=== PATIENT | female | born 1970 | race Caucasian/White ===

== ENCOUNTER 2020-10-18 21:55 | Inpatient (IN) | payer MEDICARE, MEDICAID ==
[~2020-10-18] VITALS: Ht 165.1 cm; Wt 72.7 kg
[2020-10-18] MEDS ORDERED: pantoprazole 40 MG vial IV ONE (22:05)
[2020-10-18] MEDS ORDERED: famotidine/PF 10 mg/ml inj IV ONE (22:05)
[2020-10-18] MEDS ORDERED: normal saline 1000ML IV soln IV ONE (22:05)
[2020-10-18] MEDS ORDERED: ondansetron/PF 4mg/2ml inj IV ONE (22:25)
[2020-10-18] MEDS ORDERED: morphine 4 MG/ML inj SYRINge IV ONE ×2 (22:25→23:40)
[2020-10-18 22:26] LABS: BASOPHILS # (AUTO) 0.1 X10'3 (0-0.2); BASOPHILS % (AUTO) 0.8 % (0-1); EOSINOPHILS % (AUTO) 0.3 % (0-6); HEMATOCRIT 41.8 % (35.0-45.0); HEMOGLOBIN 14.2 g/dl (12.0-16.0); LYMPHOCYTES # (AUTO) 2.5 X10'3 (1.1-4.8); LYMPHOCYTES % (AUTO) 17.3 % (21-51); MEAN CORPUSCULAR HEMOGLOBIN 28.5 PG (27.0-31.0); MEAN CORPUSCULAR HGB CONC 33.8 g/dL (33.0-36.5); MEAN CORPUSCULAR VOLUME 84.4 FL (78-98); MEAN PLATELET VOLUME 8.8 FL (7.4-10.4); MONOCYTES # (AUTO) 1.2 X10'3 (0-0.9); MONOCYTES % (AUTO) 8.7 % (2-12); NEUTROPHILS # (AUTO) 10.4 X10'3 (1.8-7.7); NEUTROPHILS % (AUTO) 72.9 % (42-75); PLATELET COUNT 377 X10'3 (140-440); RED BLOOD COUNT 4.96 X10'6 (4.20-5.60); RED CELL DISTRIBUTION WIDTH 15.2 % (11.5-14.5); WHITE BLOOD COUNT 14.2 X10'3 (4.5-11.0)
[2020-10-18 22:40] LABS: PARTIAL THROMBOPLASTIN TIME 24 SECONDS (22-32)
[2020-10-18 22:42] LABS: ALANINE AMINOTRANSFERASE 32 U/L (12-78); ALBUMIN 3.8 G/DL (3.4-5.0); ALBUMIN/GLOBULIN RATIO 0.9 (1.1-1.5); ALKALINE PHOSPHATASE 113 IU/L (46-116); ANION GAP 19 (8-16); ASPARTATE AMINO TRANSFERASE 24 U/L (10-37); BILIRUBIN,TOTAL 0.5 MG/DL (0.1-1.0); BLOOD UREA NITROGEN 13 MG/DL (7-18); BUN/CREATININE RATIO 11.8 (6.6-38.0); CALCIUM 11.5 MG/DL (8.5-10.1); CHLORIDE 98 MMOL/L (99-107); ETHANOL < 0.010 GM/DL (0.0-0.010); GLUCOSE 108 MG/DL (70-104); LIPASE < 50 U/L (73-393); MAGNESIUM 1.3 MG/DL (1.5-2.4); SODIUM 141 MMOL/L (135-145); TOTAL CARBON DIOXIDE 23.8 MMOL/L (24-32); TOTAL PROTEIN 8.2 G/DL (6.4-8.2); eGFR 53 ML/MIN
[2020-10-18] MEDS: pantoprazole 40MG/NS 100ML BAG 100 ML IV SCH (23:16)
[2020-10-18 23:58] LABS: CLARITY,URINE CLEAR (Clear); COLOR,URINE YELLOW (Yellow); UA COLLECTION TYPE CLN CATCH MIDSTREAM
[2020-10-18 23:59] LABS: GLUCOSE, URINE 250 mg/dl (Neg); KETONES,URINE NEGATIVE (Neg); LEUKOCYTE ESTERASE ,URINE NEGATIVE (Neg); NITRITES, URINE NEGATIVE (Neg); OCCULT BLOOD,URINE TRACE-INTACT (Neg); PROTEIN,URINE 30 mg/dl (Neg); UROBILINOGEN,URINE 0.2 E.U/dL (0.2-1.0)
[2020-10-19] LABS: URINE AMPHETAMINE SCREEN NEGATIVE (Neg); URINE BARBITUATE SCREEN NEGATIVE (Neg); URINE BENZODIAZEPINES SCREEN NEGATIVE (Neg); URINE CANNABINOID SCREEN NEGATIVE (Neg); URINE COCAINE SCREEN NEGATIVE (Neg); URINE METHADONE SCREEN NEGATIVE (Neg); URINE OPIATE SCREEN POSITIVE (Neg); URINE PHENCYCLIDINE SCREEN NEGATIVE (Neg)
[2020-10-19 00:02] LABS: RBC,URINE 0-2 /HPF (0-2); WBC,URINE NONE SEEN /HPF (0-4)
[2020-10-19 00:03] LABS: BACTERIA,URINE NONE SEEN /HPF (Neg); SQUAMOUS EPITHELIAL CELL,UR NONE SEEN /LPF (FEW)
[2020-10-19] MEDS ORDERED: haloperidol lactate 5mg/ml inj IM ONE (00:40)
[2020-10-19] MEDS ORDERED: potassium Cl 40 mEq/0.45% sodium chloride IV soln 520ml IV ONE (00:45)
[2020-10-19] MEDS ORDERED: Potassium Cl 40 MEQ in sodium chloride 0.45% 500 ML IV ONE (01:10)
[2020-10-19] MEDS ORDERED: diltiazem 5mg/ml 5ml inj. IV ONE (01:10)
[2020-10-19] MEDS: magnesium 2GM in 50ml NS 50 ML IV SCH ×2 (01:40→02:37)
[2020-10-19] MEDS ORDERED: dextrose ORAL solution 15 GM/59 ML bottle PO PRN ×2 (02:00)
[2020-10-19] MEDS ORDERED: normal saline 1000ml 1,000 ML IV SCH (02:00)
[2020-10-19] MEDS ORDERED: magnesium Cl slow-release 64mg tablet PO PRN (02:00)
[2020-10-19] MEDS ORDERED: magnesium 4gm in 100ml NS 100 ML IV PRN (02:00)
[2020-10-19] MEDS ORDERED: acetaminophen 325mg tablet PO PRN ×2 (02:00)
[2020-10-19] MEDS ORDERED: morphine 2 MG/ML inj. syringe IV PRN (02:00)
[2020-10-19] MEDS ORDERED: HYDROcodone/acetaminophen 5mg/325mg tablet PO PRN (02:00)
[2020-10-19] MEDS ORDERED: potassium Cl 40MEQ/1/2NS 520ml 520 ML IV PRN ×2 (02:00)
[2020-10-19] MEDS ORDERED: HYDROmorphone inj. 0.5 MG/0.5 ML DISP.SYRIN IV PRN (02:00)
[2020-10-19] MEDS ORDERED: MESSAGE TO PHARMACY PO ONE (02:00)
[2020-10-19] MEDS ORDERED: dextrose 50%-water 50ml dispensing syringe IV PRN ×2 (02:00)
[2020-10-19] MEDS ORDERED: potassium Cl 20 mEq SR tablet PO PRN ×2 (02:00)
[2020-10-19] MEDS ORDERED: magnesium hydroxide 30ml (MOM) UD suspension PO PRN (02:00)
[2020-10-19] MEDS ORDERED: magnesium 2GM in 50ml NS 50 ML IV PRN (02:00)
[2020-10-19] MEDS ORDERED: glucagon, human recombinant 1mg kit SUBCUT PRN (02:00)
[2020-10-19] MEDS: potassium Cl 20mEq in NS 1,000 ML IV SCH ×4 (02:15→21:03)
[2020-10-19 02:52] LABS: HEMOGLOBIN A1C 11.6 % (4.5-6.2)
[2020-10-19 04:17] LABS: GASTRIC OCCULT BLOOD NEGATIVE (Neg); OCCULT BLOOD STOOL POSITIVE (Neg)
[2020-10-19] MEDS: pantoprazole 40MG/NS 100ML BAG 100 ML IV SCH ×5 (04:27→19:25)
--- NOTE | 2020-10-19 05:55 | NUR ---
NOTIFIED MAGU OF UPWARD TREND OF TROPONIN LEVELS. MD ORDERED TO CONT MONITORING.
[2020-10-19] MEDS: docusate sod 100mg capsule PO SCH ×2 (08:00→18:45)
[2020-10-19] MEDS: K and/or MAG REPLACEMENT MC SCH ×2 (08:00→18:45)
[2020-10-19] MEDS ORDERED: pantoprazole 40 MG vial IV SCH (08:00)
[2020-10-19] MEDS: CefTRIAXone 2gm/D5W 50ml BAG 50 ML IV SCH (09:01)
[2020-10-19 10:01] LABS: ALBUMIN 3.2 G/DL (3.4-5.0); ANION GAP 23 (8-16); BLOOD UREA NITROGEN 17 MG/DL (7-18); BUN/CREATININE RATIO 13.9 (6.6-38.0); CALCIUM 8.4 MG/DL (8.5-10.1); CHLORIDE 95 MMOL/L (99-107); CREATININE 1.22 MG/DL (0.40-0.90); SODIUM 129 MMOL/L (135-145); eGFR 47 ML/MIN
[2020-10-19] MEDS: azithromycin/NS 500mg/250ml 250 ML IV SCH (11:07)
[2020-10-19 11:43] LABS: POTASSIUM 6.5 MMOL/L (3.5-5.1)
[2020-10-19 11:44] LABS: GLUCOSE 593 MG/DL (70-104)
[2020-10-19] MEDS ORDERED: sodium phosphate inj. 15 MMOL in dextrose 5%-water 250 ML IV PRN (12:10)
[2020-10-19] MEDS ORDERED: Neutra Phos packet PO PRN (12:10)
[2020-10-19] MEDS ORDERED: sodium phosphate inj. 30 MMOL in dextrose 5%-water 250 ML IV PRN (12:10)
[2020-10-19] MEDS ORDERED: insulin regular, human U-100 3ml vial - multi-dose IV PRN (12:10)
[2020-10-19] MEDS ORDERED: LEVO100T PO (12:22)
[2020-10-19] MEDS ORDERED: LISI20TA28 PO (12:22)
[2020-10-19] MEDS ORDERED: INSU100V13 SQ (12:22)
[2020-10-19] MEDS ORDERED: CARV6.2553 PO (12:22)
[2020-10-19] MEDS ORDERED: VITA400T10 PO (12:22)
[2020-10-19] MEDS ORDERED: AMIT25TA9 PO (12:22)
[2020-10-19] MEDS ORDERED: LORA-269 PO (12:22)
[2020-10-19] MEDS ORDERED: PRAZ2CAP2 PO (12:22)
[2020-10-19] MEDS ORDERED: LANTUS SQ (12:22)
[2020-10-19] MEDS ORDERED: ATOR40TA72 PO (12:22)
[2020-10-19] MEDS ORDERED: ASPI-611 PO (12:22)
[2020-10-19] MEDS ORDERED: SUMA50TA17 PO (12:22)
[2020-10-19 13:25] LABS: ALBUMIN 3.4 G/DL (3.4-5.0); ANION GAP 31 (8-16); BLOOD UREA NITROGEN 19 MG/DL (7-18); BUN/CREATININE RATIO 11.9 (6.6-38.0); CALCIUM 7.9 MG/DL (8.5-10.1); CHLORIDE 91 MMOL/L (99-107); CREATININE 1.59 MG/DL (0.40-0.90); PHOSPHORUS 5.1 MG/DL (2.3-4.5); POTASSIUM 5.9 MMOL/L (3.5-5.1); SODIUM 129 MMOL/L (135-145); eGFR 35 ML/MIN
[2020-10-19 13:31] LABS: HEMATOCRIT 34.7 % (35.0-45.0); HEMOGLOBIN 11.6 g/dl (12.0-16.0); MEAN CORPUSCULAR HEMOGLOBIN 29.4 PG (27.0-31.0); MEAN CORPUSCULAR HGB CONC 33.6 g/dL (33.0-36.5); MEAN CORPUSCULAR VOLUME 87.5 FL (78-98); PLATELET COUNT 325 X10'3 (140-440); RED BLOOD COUNT 3.96 X10'6 (4.20-5.60); RED CELL DISTRIBUTION WIDTH 14.5 % (11.5-14.5); WHITE BLOOD COUNT 17.1 X10'3 (4.5-11.0)
[2020-10-19 13:32] LABS: MEAN PLATELET VOLUME 9.6 FL (7.4-10.4)
[2020-10-19 13:36] LABS: GLUCOSE 719 MG/DL (70-104); TOTAL CARBON DIOXIDE 7.4 MMOL/L (24-32)
[2020-10-19] MEDS: Insulin Reg/NS 100units/100mL 100 ML IV SCH (13:45)
[2020-10-19] MEDS: normal saline 1000ml 1,000 ML IV SCH ×4 (13:51→21:03)
[2020-10-19] MEDS: ondansetron/PF 4mg/2ml inj IV PRN (13:55)
[2020-10-19] MEDS: morphine 2 MG/ML inj. syringe IV PRN (13:56)
[2020-10-19] MEDS: lactobacillus rhamnosus 10,000 MMU CELLS/CAPSULE PO SCH (18:46)
[2020-10-19] MEDS: dextrose 5%-1/2 normal saline 1,000 ML IV SCH (19:25)
[2020-10-19 19:30] LABS: ALANINE AMINOTRANSFERASE 34 U/L (12-78); ALBUMIN/GLOBULIN RATIO 0.7 (1.1-1.5); ALKALINE PHOSPHATASE 111 IU/L (46-116); ANION GAP 21 (8-16); ASPARTATE AMINO TRANSFERASE 26 U/L (10-37); BILIRUBIN,TOTAL 0.5 MG/DL (0.1-1.0); BLOOD UREA NITROGEN 18 MG/DL (7-18); CALCIUM 7.9 MG/DL (8.5-10.1); CHLORIDE 101 MMOL/L (99-107); GLUCOSE 193 MG/DL (70-104); POTASSIUM 4.3 MMOL/L (3.5-5.1); SODIUM 137 MMOL/L (135-145); TOTAL CARBON DIOXIDE 15.2 MMOL/L (24-32); TOTAL PROTEIN 7.1 G/DL (6.4-8.2); eGFR 37 ML/MIN
[2020-10-19] MEDS: insulin glargine (Lantus) pen - multi-dose SQ SCH (21:00)
[2020-10-19] MEDS: potassium CL 20mEq in D5-1/2NS 1,000 ML IV PRN (21:04)
--- NOTE | 2020-10-19 22:07 | NUR ---
BG [id number]
[2020-10-20] MEDS: pantoprazole 40MG/NS 100ML BAG 100 ML IV SCH ×4 (00:56→21:41)
[2020-10-20] MEDS: dextrose 5%-1/2 normal saline 1,000 ML IV SCH ×4 (00:57→22:00)
[2020-10-20] MEDS: normal saline 1000ml 1,000 ML IV SCH ×5 (00:59→19:59)
[2020-10-20] MEDS: potassium Cl 20mEq in NS 1,000 ML IV SCH ×3 (01:00→18:15)
[2020-10-20 05:41] LABS: ALANINE AMINOTRANSFERASE 21 U/L (12-78); ALBUMIN 2.7 G/DL (3.4-5.0); ALBUMIN/GLOBULIN RATIO 0.7 (1.1-1.5); ALKALINE PHOSPHATASE 108 IU/L (46-116); ANION GAP 9 (8-16); ASPARTATE AMINO TRANSFERASE 22 U/L (10-37); BILIRUBIN,TOTAL 0.5 MG/DL (0.1-1.0); BLOOD UREA NITROGEN 12 MG/DL (7-18); BUN/CREATININE RATIO 9.2 (6.6-38.0); CALCIUM 7.4 MG/DL (8.5-10.1); CHLORIDE 105 MMOL/L (99-107); CREATININE 1.31 MG/DL (0.40-0.90); GLUCOSE 147 MG/DL (70-104); MAGNESIUM 1.8 MG/DL (1.5-2.4); PHOSPHORUS 1.9 MG/DL (2.3-4.5); SODIUM 134 MMOL/L (135-145); TOTAL PROTEIN 6.4 G/DL (6.4-8.2); eGFR 44 ML/MIN
[2020-10-20] MEDS: morphine 2 MG/ML inj. syringe IV PRN ×4 (05:42→23:40)
[2020-10-20] MEDS: ondansetron/PF 4mg/2ml inj IV PRN ×3 (05:42→23:40)
[2020-10-20 05:53] LABS: BASOPHILS # (AUTO) 0.1 X10'3 (0-0.2); BASOPHILS % (AUTO) 0.5 % (0-1); EOSINOPHILS # (AUTO) 0.1 X10'3 (0-0.9); EOSINOPHILS % (AUTO) 0.8 % (0-6); HEMATOCRIT 39.6 % (35.0-45.0); HEMOGLOBIN 13.2 g/dl (12.0-16.0); LYMPHOCYTES # (AUTO) 3.3 X10'3 (1.1-4.8); LYMPHOCYTES % (AUTO) 18.4 % (21-51); MEAN CORPUSCULAR HEMOGLOBIN 28.7 PG (27.0-31.0); MEAN CORPUSCULAR HGB CONC 33.4 g/dL (33.0-36.5); MEAN CORPUSCULAR VOLUME 85.9 FL (78-98); MEAN PLATELET VOLUME 8.9 FL (7.4-10.4); MONOCYTES # (AUTO) 1.3 X10'3 (0-0.9); MONOCYTES % (AUTO) 7.4 % (2-12); NEUTROPHILS % (AUTO) 72.9 % (42-75); PLATELET COUNT 252 X10'3 (140-440); RED BLOOD COUNT 4.61 X10'6 (4.20-5.60); RED CELL DISTRIBUTION WIDTH 15.2 % (11.5-14.5); WHITE BLOOD COUNT 17.8 X10'3 (4.5-11.0)
[2020-10-20] MEDS: K and/or MAG REPLACEMENT MC SCH ×2 (08:00→20:00)
[2020-10-20] MEDS: docusate sod 100mg capsule PO SCH ×2 (08:00→20:33)
[2020-10-20 08:43] LABS: TROPONIN I 0.15 NG/ML (0.0-0.05)
[2020-10-20] MEDS: azithromycin/NS 500mg/250ml 250 ML IV SCH (08:50)
[2020-10-20] MEDS: CefTRIAXone 2gm/D5W 50ml BAG 50 ML IV SCH (08:50)
[2020-10-20] MEDS: lactobacillus rhamnosus 10,000 MMU CELLS/CAPSULE PO SCH ×2 (08:50→20:32)
--- NOTE | 2020-10-20 09:40 | NUR ---
REPORTED BG [address] TRAYLOR. NEW ORDERS: DECREASE INSULIN DRIP TO 3U/HR, DECREASE D5 1/2 TO 200CC/HR. BMP IN ONE HR.
--- NOTE | 2020-10-20 09:53 | NUR ---
CALLED DR. TRAYLOR TO REPORT: PT HAVING SHARP LEFT FLANK PAIN.
[2020-10-20 11:15] LABS: ALBUMIN 2.3 G/DL (3.4-5.0); ANION GAP 11 (8-16); BLOOD UREA NITROGEN 7 MG/DL (7-18); BUN/CREATININE RATIO 7.5 (6.6-38.0); CALCIUM 6.7 MG/DL (8.5-10.1); CHLORIDE 108 MMOL/L (99-107); CREATININE 0.93 MG/DL (0.40-0.90); GLUCOSE 71 MG/DL (70-104); SODIUM 139 MMOL/L (135-145); eGFR 65 ML/MIN
[2020-10-20 11:21] LABS: POTASSIUM 3.6 MMOL/L (3.5-5.1)
[2020-10-20] MEDS: Insulin Reg/NS 100units/100mL 100 ML IV SCH (11:36)
[2020-10-20] MEDS: potassium CL 20mEq in D5-1/2NS 1,000 ML IV PRN ×2 (11:46→19:28)
[2020-10-20] MEDS ORDERED: fentaNYL/PF 50MCG/1 ML 2ML syringe ONE (12:38)
[2020-10-20] MEDS ORDERED: LIDOcaine Viscous 15ml cup ONE (12:39)
[2020-10-20] MEDS ORDERED: MIDAZolam 1 MG/ML 5ML VIAL ONE (12:39)
--- NOTE | 2020-10-20 12:56 | NUR ---
UYEN FROM GI HERE, PT TO GI LAB
[2020-10-20 13:00] VITALS: BP 133/118
[2020-10-20 13:33] VITALS: BP 92/65
[2020-10-20 13:43] VITALS: BP 95/55
[2020-10-20 13:53] VITALS: BP 91/53
[2020-10-20 14:03] VITALS: BP 97/53
--- NOTE | 2020-10-20 14:34 | NUR ---
Pt. back from GI lab, per GI senior laboratory technician pt. BG 110 in GI Lab
--- NOTE | 2020-10-20 16:30 | NUR ---
Disscussed pt.'s BG with Dr. Gaytan, Dr. Gaytan gave verbal order to decrease Insulin drip to 2units/hr
[2020-10-20] MEDS: HYDROcodone/acetaminophen 10/325mg tab PO PRN (17:52)
--- NOTE | 2020-10-20 18:02 | NUR ---
Disscussed pt.'s BG with Dr. Gaytan, Dr. Gaytan verbal oreder to Insulin drip to 1 unit/hr, and Fluids to 150ml/hr
[2020-10-20] MEDS: insulin glargine (Lantus) pen - multi-dose SQ SCH (21:00)
--- NOTE | 2020-10-20 21:43 | NUR ---
Disscussed pt. BG with Dr. Banuelos, D5 1/2 NS drip decreased
[2020-10-20 22:29] LABS: ALANINE AMINOTRANSFERASE 28 U/L (12-78); ALBUMIN 2.6 G/DL (3.4-5.0); ALBUMIN/GLOBULIN RATIO 0.7 (1.1-1.5); ALKALINE PHOSPHATASE 93 IU/L (46-116); ANION GAP 12 (8-16); ASPARTATE AMINO TRANSFERASE 27 U/L (10-37); BILIRUBIN,TOTAL 0.2 MG/DL (0.1-1.0); BLOOD UREA NITROGEN 4 MG/DL (7-18); BUN/CREATININE RATIO 3.1 (6.6-38.0); CALCIUM 7.2 MG/DL (8.5-10.1); CHLORIDE 105 MMOL/L (99-107); CREATININE 1.27 MG/DL (0.40-0.90); GLUCOSE 299 MG/DL (70-104); SODIUM 136 MMOL/L (135-145); TOTAL PROTEIN 6.3 G/DL (6.4-8.2); eGFR 45 ML/MIN
[2020-10-20] MEDS ORDERED: morphine 2 MG/ML inj. syringe IV PRN (23:25)
[2020-10-20] MEDS: temazepam 15mg capsule PO PRN (23:40)
[2020-10-21] VITALS (13 sets, daily range): BP systolic 121–166; BP diastolic 52–84
[2020-10-21] MEDS: normal saline 1000ml 1,000 ML IV SCH ×4 (00:10→23:00)
[2020-10-21] MEDS: potassium Cl 20mEq in NS 1,000 ML IV SCH (00:55)
[2020-10-21] MEDS: pantoprazole 40MG/NS 100ML BAG 100 ML IV SCH ×5 (01:00→23:21)
[2020-10-21 03:04] LABS: BASOPHILS % (AUTO) 0.5 % (0-1); EOSINOPHILS # (AUTO) 0.1 X10'3 (0-0.9); EOSINOPHILS % (AUTO) 1.2 % (0-6); HEMATOCRIT 35.8 % (35.0-45.0); LYMPHOCYTES # (AUTO) 2.7 X10'3 (1.1-4.8); LYMPHOCYTES % (AUTO) 33.8 % (21-51); MEAN CORPUSCULAR HEMOGLOBIN 29.1 PG (27.0-31.0); MEAN CORPUSCULAR HGB CONC 33.4 g/dL (33.0-36.5); MEAN CORPUSCULAR VOLUME 87.2 FL (78-98); MEAN PLATELET VOLUME 8.5 FL (7.4-10.4); MONOCYTES # (AUTO) 0.7 X10'3 (0-0.9); MONOCYTES % (AUTO) 8.3 % (2-12); NEUTROPHILS # (AUTO) 4.4 X10'3 (1.8-7.7); NEUTROPHILS % (AUTO) 56.2 % (42-75); PLATELET COUNT 237 X10'3 (140-440); RED BLOOD COUNT 4.11 X10'6 (4.20-5.60); WHITE BLOOD COUNT 7.9 X10'3 (4.5-11.0)
[2020-10-21 03:17] LABS: ALANINE AMINOTRANSFERASE 23 U/L (12-78); ALBUMIN 2.4 G/DL (3.4-5.0); ALBUMIN/GLOBULIN RATIO 0.7 (1.1-1.5); ALKALINE PHOSPHATASE 85 IU/L (46-116); ANION GAP 11 (8-16); ASPARTATE AMINO TRANSFERASE 26 U/L (10-37); BILIRUBIN,TOTAL 0.2 MG/DL (0.1-1.0); BLOOD UREA NITROGEN 3 MG/DL (7-18); BUN/CREATININE RATIO 3.2 (6.6-38.0); CALCIUM 7.3 MG/DL (8.5-10.1); CHLORIDE 108 MMOL/L (99-107); CREATININE 0.95 MG/DL (0.40-0.90); GLUCOSE 187 MG/DL (70-104); MAGNESIUM 1.8 MG/DL (1.5-2.4); POTASSIUM 4.3 MMOL/L (3.5-5.1); SODIUM 138 MMOL/L (135-145); TOTAL PROTEIN 5.9 G/DL (6.4-8.2); eGFR 63 ML/MIN
[2020-10-21] MEDS: morphine 2 MG/ML inj. syringe IV PRN ×5 (03:50→23:22)
[2020-10-21] MEDS: Insulin Reg/NS 100units/100mL 100 ML IV SCH ×2 (04:10→09:50)
[2020-10-21] MEDS: dextrose 5%-1/2 normal saline 1,000 ML IV SCH (04:40)
[2020-10-21] MEDS: ondansetron/PF 4mg/2ml inj IV PRN ×3 (05:10→17:23)
[2020-10-21] MEDS: temazepam 15mg capsule PO PRN (05:15)
[2020-10-21] MEDS: docusate sod 100mg capsule PO SCH ×2 (07:32→20:14)
[2020-10-21] MEDS: lactobacillus rhamnosus 10,000 MMU CELLS/CAPSULE PO SCH ×2 (07:32→20:14)
[2020-10-21] MEDS: CefTRIAXone 2gm/D5W 50ml BAG 50 ML IV SCH (07:33)
--- NOTE | 2020-10-21 07:58 | NUR ---
called Dr. Gaytan,obtained an order to dc dka protocol, MD instructed to paged him regarding how much lantus patient receives at home.pt receives 25 units of lantus.paged .
[2020-10-21] MEDS: K and/or MAG REPLACEMENT MC SCH ×2 (08:00→20:00)
--- NOTE | 2020-10-21 08:00 | NUR ---
Dr. Gaytan called ED RN,ordered to give patient lantus 20 units,stop drip an hour after, start NS 100ml/hour, start on clear liquid diet and start glycemic protocol.
[2020-10-21] MEDS ORDERED: insulin glargine (Lantus) pen - multi-dose SQ STA (08:05)
--- NOTE | 2020-10-21 09:27 | NUR ---
pt to nuc med.
[2020-10-21] MEDS ORDERED: regadenoson 0.4mg/5ml syringe IV ONE (10:30)
[2020-10-21] MEDS ORDERED: aminophylline 250mg/10ml inj. IV ONE (10:30)
[2020-10-21] MEDS ORDERED: glucagon, human recombinant 1mg kit SUBCUT PRN (11:40)
[2020-10-21] MEDS ORDERED: dextrose ORAL solution 15 GM/59 ML bottle PO PRN ×2 (11:40)
[2020-10-21] MEDS ORDERED: dextrose 50%-water 50ml dispensing syringe IV PRN ×2 (11:40)
[2020-10-21] MEDS ORDERED: insulin Lispro (HumaLOG) vial - multi-dose SQ SCH (11:40)
[2020-10-21] MEDS ORDERED: MESSAGE TO PHARMACY PO ONE (11:40)
--- NOTE | 2020-10-21 11:54 | NUR ---
insulin drip stopped at 0940.
[2020-10-21] MEDS ORDERED: azithromycin/NS 500mg/250ml 250 ML IV SCH (12:00)
--- NOTE | 2020-10-21 12:35 | NUR ---
Notified Dr Gaytan that pt spouse is awaiting his call: PAGER ID: [phone] MESSAGE: Kyrie Irvin [phone] returned your call. Is waiting by phone for you to please call him back at [phone]. Marli [phone]
[2020-10-21] MEDS: insulin Lispro (HumaLOG) vial - multi-dose SQ SCH ×2 (17:22→20:25)
--- NOTE | 2020-10-21 19:07 | NUR ---
Patient in room PCU 3018. I have received report from Marli MIRANDA and had the opportunity to ask questions and assume patient care.
[2020-10-21] MEDS ORDERED: insulin glargine (Lantus) pen - multi-dose SQ SCH (21:00)
[2020-10-21] MEDS: insulin glargine (Lantus) pen - multi-dose SQ SCH (23:29)
[2020-10-22] MEDS: ondansetron/PF 4mg/2ml inj IV PRN ×2 (00:21→09:28)
[2020-10-22 02:00] VITALS: BP 153/74
[2020-10-22] MEDS ORDERED: LORazepam 1 MG tablet PO PRN (02:15)
[2020-10-22] MEDS ORDERED: prazosin 1mg capsule PO ONE (02:30)
[2020-10-22] MEDS ORDERED: amitriptyline 25mg tablet PO ONE (02:30)
[2020-10-22] MEDS: morphine 2 MG/ML inj. syringe IV PRN (03:47)
[2020-10-22] MEDS: pantoprazole 40MG/NS 100ML BAG 100 ML IV SCH ×2 (05:20→07:41)
[2020-10-22 06:15] LABS: BASOPHILS % (AUTO) 0.7 % (0-1); EOSINOPHILS # (AUTO) 0.1 X10'3 (0-0.9); HEMATOCRIT 33.3 % (35.0-45.0); LYMPHOCYTES # (AUTO) 2.1 X10'3 (1.1-4.8); LYMPHOCYTES % (AUTO) 32.4 % (21-51); MEAN CORPUSCULAR HEMOGLOBIN 28.8 PG (27.0-31.0); MEAN CORPUSCULAR HGB CONC 33.1 g/dL (33.0-36.5); MEAN CORPUSCULAR VOLUME 87.1 FL (78-98); MEAN PLATELET VOLUME 9.1 FL (7.4-10.4); MONOCYTES # (AUTO) 0.5 X10'3 (0-0.9); MONOCYTES % (AUTO) 8.1 % (2-12); NEUTROPHILS # (AUTO) 3.7 X10'3 (1.8-7.7); NEUTROPHILS % (AUTO) 56.8 % (42-75); PLATELET COUNT 234 X10'3 (140-440); RED BLOOD COUNT 3.83 X10'6 (4.20-5.60); RED CELL DISTRIBUTION WIDTH 14.7 % (11.5-14.5); WHITE BLOOD COUNT 6.5 X10'3 (4.5-11.0)
--- NOTE | 2020-10-22 06:20 | NUR ---
Patient in room PCU 3018. I have received report from Julee MIRANDA and had the opportunity to ask questions and assume patient care. Pt supine in bed, sleeping, chest rising and falling evenly. protonix and NS running. SRx2, BLL, CL within reach. no s/sx acute distress
[2020-10-22 06:41] LABS: ALANINE AMINOTRANSFERASE 28 U/L (12-78); ALBUMIN 2.2 G/DL (3.4-5.0); ALBUMIN/GLOBULIN RATIO 0.7 (1.1-1.5); ALKALINE PHOSPHATASE 86 IU/L (46-116); ANION GAP 9 (8-16); ASPARTATE AMINO TRANSFERASE 23 U/L (10-37); BILIRUBIN,TOTAL 0.3 MG/DL (0.1-1.0); BLOOD UREA NITROGEN 3 MG/DL (7-18); BUN/CREATININE RATIO 3.9 (6.6-38.0); CHLORIDE 107 MMOL/L (99-107); CREATININE 0.77 MG/DL (0.40-0.90); GLUCOSE 180 MG/DL (70-104); MAGNESIUM 1.5 MG/DL (1.5-2.4); POTASSIUM 3.8 MMOL/L (3.5-5.1); SODIUM 140 MMOL/L (135-145); TOTAL CARBON DIOXIDE 23.9 MMOL/L (24-32); TOTAL PROTEIN 5.5 G/DL (6.4-8.2); eGFR 80 ML/MIN
[2020-10-22 07:00] VITALS: BP 135/67
[2020-10-22] MEDS ORDERED: levoTHYROXINE 100mcg tablet PO SCH (07:00)
[2020-10-22] MEDS: normal saline 1000ml 1,000 ML IV SCH (07:42)
[2020-10-22] MEDS: K and/or MAG REPLACEMENT MC SCH (08:00)
[2020-10-22] MEDS ORDERED: prazosin 1mg capsule PO SCH (08:00)
--- NOTE | 2020-10-22 08:00 | NUR ---
Problems reprioritized. Patient report given, questions answered & plan of care reviewed with Ijeoma MIRANDA.
[2020-10-22] MEDS: CefTRIAXone 2gm/D5W 50ml BAG 50 ML IV SCH (09:11)
[2020-10-22] MEDS: docusate sod 100mg capsule PO SCH (09:12)
[2020-10-22] MEDS: lactobacillus rhamnosus 10,000 MMU CELLS/CAPSULE PO SCH (09:12)
[2020-10-22] MEDS: insulin Lispro (HumaLOG) vial - multi-dose SQ SCH (09:21)
[2020-10-22] MEDS: HYDROcodone/acetaminophen 10/325mg tab PO PRN (09:27)
--- NOTE | 2020-10-22 09:54 | NUR ---
Initial: Pt presented with c/o N/V, chest pain, and abdominal pain and admit for DKA, hypokalemia, GIB, type II IL, and pneumonia/leukocytosis. Per H&P pt recently admitted to [facility] for sepsis and DKA with A1c of 12%, current A1c is 11.6%. Noted pt continues with c/o nausea and abdominal pain. Pt would benefit from DM education once stable. Pt on a full liquid diet documented with 75-100% PO intake. LBM 10/21 documented as small, pt receiving routine bowel care with PRN bowel care available. Will continue to follow closely and make recommendations as appropriate. Recommendations: 1) Advance to CHO controlled diet as medically indicated 2) Routine bowel care 3) Scaled weight this admit; weekly scaled weights thereafter 4) DM education once stable, admit with DKA with A1c 11.6% Addendum: 10/22/20 at [address] Amended: Links added.
--- NOTE | 2020-10-22 10:29 | NUR ---
Dr Gaytan to bedside. new orders to change protonix to p.o., dc IV morphine. diabetes education attempted. pt disinterested and grunts wtih verbal interaction.
[2020-10-22] MEDS ORDERED: LEVO500T89 PO (10:38)
--- NOTE | 2020-10-22 11:15 | NUR ---
Patient in room PCU 3018. I have received report from RUBEN Raphael and had the opportunity to ask questions and assume patient care. Pt angry about DC pulled IV out. Trying to call her sister who just recently left. Sister aware pt was to be DC today. MD discussed test findings and tx options which were refused by pt. Will continue to try reaching pt's sister.
--- NOTE | 2020-10-22 11:16 | NUR ---
Problems reprioritized. Patient report given, questions answered & plan of care reviewed with June MIRANDA. Pt left side lying in bed, no sob, no emesis. no s/sx pain. no s/sx acute distress
--- NOTE | 2020-10-22 12:08 | NUR ---
Pt reports vomiting in BSC. Noted coffee appearance and smell with empty coffee cup at bedside. Pt not due for antiemetics for 90 min. Will monitor. Pt very anxious re DC. She reached her sister who reached home in [facility]. She will bring clothing for DC on return.
[2020-10-22] MEDS ORDERED: amitriptyline 25mg tablet PO SCH (21:00)
[2020-10-23] MEDS ORDERED: pantoprazole 40mg Tablet.DR PO SCH (07:30)
== END 2020-10-22 13:19 | disposition home or self-care (01) | DRG 368 ==
LOC: ER 21:55 → ED HOLD 10-19 01:58 → CANBEDREQ 10-20 20:08 → PCU 3S 10-21 14:02
PROVIDERS: ADMIT Internal Medicine; ATTEND Family Medicine
PROC: 0DB68ZX Excision of Stomach, Via Natural or Artificial Opening Endoscopic, Diagnostic (ICD-10-PCS; 2020-10-20)
PROC: 4A02XM4 Measurement of Cardiac Total Activity, External Approach (ICD-10-PCS; principal; 2020-10-21)
PROC: 3E073KZ Introduction of Other Diagnostic Substance into Coronary Artery, Percutaneous Approach (ICD-10-PCS; 2020-10-21)
DX: K20.91 Esophagitis, unspecified with bleeding (principal); J69.0 Pneumonitis due to inhalation of food and vomit; E10.10 Type 1 diabetes mellitus with ketoacidosis without coma; I21.A1 Myocardial infarction type 2; N17.0 Acute kidney failure with tubular necrosis; K92.0 Hematemesis; E86.0 Dehydration; F12.90 Cannabis use, unspecified, uncomplicated; E83.42 Hypomagnesemia; K52.9 Noninfective gastroenteritis and colitis, unspecified; E87.6 Hypokalemia; K31.89 Other diseases of stomach and duodenum; E10.22 Type 1 diabetes mellitus with diabetic chronic kidney disease; E87.5 Hyperkalemia; Z20.822 Contact with and (suspected) exposure to COVID-19; G47.00 Insomnia, unspecified; I48.91 Unspecified atrial fibrillation; K31.84 Gastroparesis; E10.43 Type 1 diabetes mellitus with diabetic autonomic (poly)neuropathy; N18.30 Chronic kidney disease, stage 3 unspecified; Z79.4 Long term (current) use of insulin; Z90.49 Acquired absence of other specified parts of digestive tract; Z88.8 Allergy status to other drugs, medicaments and biological substances
CPT/HCPCS: 36415; 43239; 71045; 74176; 78452; 80048; 80053; 80305; 80320; 81001; 81003; 82271; 82272; 83036; 83690; 83735; 84100; 84484; 85025; 85027; 85610; 85730; 86885; 86900; 86901; 87081; 87635; 93005; 93017; 93306; 96374; 96375; 96376; 99152; 99285; A4620; A9500; C9113; C9803; G0378; J0280; J0456; J0696; J1630; J1815; J2250; J2270; J2405; J2785; J3010; J3475; J3480; J3490; J7030; J7040